=== PATIENT | female | born 1990 | race Caucasian/White ===

== ENCOUNTER 2018-03-05 19:09 | Inpatient (IN) | payer OTHER, SELFPAY ==
[~2018-03-05 19:09] MED LIST: ISOVUE-370 76%-LOCM 1 ML ONE; Ondansetron HCl/PF 4 MG/2 ML Vial ONE; PHENYLEPHRINE-NS 100 MCG/ML 10 ML SYRINGE ONE; Vecuronium 10 MG VIAL ONE; ePHEDrine/0.9% NaCl/PF SYRINGE 50 mg/10 ml ONE
[2018-03-05] MEDS ORDERED: fentaNYL Citrate/PF 2,000 MCG in Sodium Chloride 0.9% 60 ML IV SCH ×2 (19:29→20:37)
[2018-03-05 19:42] LABS: Hemoglobin 12.6 g/dL (12.0-16.0); Mean Corpuscular HGB CONC 34.2 g/dL (32.0-36.0); Mean Corpuscular Hemoglobin 31.6 pg (27.0-31.0); Mean Corpuscular Volume 92.4 fL (78.0-98.0); Mean Platelet Volume 6.6 fL (7.4-10.4); Platelet Count 215 thou/uL (130-400); RBC Distribution Width 11.7 % (11.5-14.5); Red Blood Cell (RBC) Count 3.99 mill/uL (4.20-5.40); White Blood Cell (WBC) Count 31.5 thou/uL (4.8-10.8)
[2018-03-05 19:42] LABS: Bilirubin Negative (Negative); Blood, Urine Large (Negative); Clarity CLEAR (Clear); Glucose, Urine (Dipstick) 250 mg/dL (Negative); Leukocyte Negative (Negative); Nitrite Negative (Negative); Protein, Urine (Dipstick) 300 mg/dL (Neg-Trace); Specific Gravity, Urine 1.013 (1.002-1.036); Urobilinogen 0.2 mg/dL (0.2-1.0); pH, Urine 6.5 (5.0-9.0)
[2018-03-05 19:45] LABS: Bacteria/HPF None Seen HPF (None Seen); Hyaline Casts/LPF 0-3 HYALINE CAST LPF (0-3 Hyaline); Pathc Cast-AUWi Flag 2.18 (0-2.49); RBC/HPF GREATER THAN 50-TNTC HPF (0-3); Renal Epithelial None Seen HPF (0-3); Transitional Epithelial NONE SEEN HPF (0-3)
[2018-03-05 19:46] LABS: Actual Bicarbonate (HCO3a) 21.9 mEq/L (22-28); Base Excess (BEa) -4.5 mEq/L (-2.0 to +3.0); CO2 Tension 45.6 mmHg (35.0-45.0); Hematocrit-ABG 37.3 % (36.0-47.0); O2 Tension (PaO2) 122.8 mmHg (80.0-100.0)
[2018-03-05 19:47] LABS: Analyzer IN Cardio ER; Calcium, Ionized 1.1 mmol/L (1.12-1.30); Hemoglobin (Hb) 11.9 g/dL (12.0-16.0); Puncture Site RRA
[2018-03-05 19:49] LABS: INR-International Normal Ratio 1.5; PTT 35.4 SEC (22.9-36.1); Prothrombin Time 18.4 SEC (12.0-14.7)
[2018-03-05] MEDS ORDERED: Adacel (T-DAP) 0.5 ML VIAL ONE (19:54)
[2018-03-05 19:56] LABS: ALT (SGPT) 132 U/L (8-55); AST (SGOT) 152 U/L (5-34); Albumin 3.5 g/dL (3.5-5.0); Alkaline Phosphatase 47 U/L (40-150); Anion Gap 14 mmol/L (10-20); BUN (Urea Nitrogen) 12 mg/dL (7.0-18.7); Bilirubin, Total 0.4 mg/dL (0.2-1.2); Calc. Creatinine Clearance 0 mL/min (70-130); Calcium 7.9 mg/dL (7.8-10.44); Carbon Dioxide 18 mmol/L (22-29); Chloride 109 mmol/L (98-107); Estimated GFR-MDRD 85; Globulin 2.7 g/dL (2.4-3.5); Glucose 241 mg/dL (70-105); Potassium 3.3 mmol/L (3.5-5.1); Protein, Total 6.2 g/dL (6.0-8.3); Sodium 138 mmol/L (136-145)
[2018-03-05 19:58] LABS: Band 13 % (5-11); Eosinophils 1 % (0-10); Lymphocytes 12 % (21-51); MDiff Complete? YES; Monocytes 9 % (0-10); Neutrophil 65 % (42-75); PLT Morphology Comment Appears Adequate
[2018-03-05] MEDS ORDERED: MANNITOL 20% IVPB SCH (20:00)
[2018-03-05] MEDS ORDERED: CEFAZOLIN/Water 2 GM/20 ML SYRINGE SLOW IVP SCH (20:15)
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
[2018-03-05] MEDS ORDERED: Bacitracin Zinc Ointment 30 gm TUBE ONE (20:18)
[2018-03-05] MEDS ORDERED: Sodium Chloride 0.9% 10 ML ONE (20:18)
[2018-03-05] MEDS ORDERED: Ondansetron HCl/PF 4 MG/2 ML Vial IVP PRN (20:21)
[2018-03-05] MEDS ORDERED: Dextrose 50% Abboject 50 ML SYRINGE SLOW IVP PRN (20:21)
[2018-03-05] MEDS ORDERED: Ondansetron ODT 4 MG TAB PO PRN (20:21)
[2018-03-05] MEDS ORDERED: Dextrose 5% in Water 1,000 ML IV PRN (20:21)
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
[2018-03-05] MEDS ORDERED: Midazolam HCl 2 mg/2 ml Vial ONE (20:25)
[2018-03-05] MEDS ORDERED: Fentanyl 100 MCG/2 ML VIAL ONE (20:25)
[2018-03-05] MEDS ORDERED: Ventilator Sedation Protocol 1 EACH FS SCH (20:30)
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
[2018-03-05] MEDS ORDERED: Lorazepam 2 MG/ML VIAL SLOW IVP PRN (20:37)
[2018-03-05] MEDS ORDERED: Fentanyl BOLUS 250 ML IVPB PRN (20:37)
[2018-03-05] MEDS ORDERED: Propofol BOLUS 1,000 MG/100 ML VIAL IV PRN (20:37)
[2018-03-05] MEDS ORDERED: DISCONTINUE PREVIOUS NARCOTIC PAIN MEDICATIONS AND BENZODIAZEPINES FS SCH (20:37)
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
[2018-03-05] MEDS ORDERED: Thrombin 5000 UNITS/5 ML VIAL ONE (21:02)
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
[2018-03-05] MEDS ORDERED: hydrALAZINE 20 MG/ML VIAL SLOW IVP PRN (21:27)
[2018-03-05] MEDS ORDERED: Labetalol HCl 100 MG/20 ML VIAL SLOW IVP PRN (21:28)
[2018-03-05] MEDS ORDERED: PHENYLEPHRINE-NS 100 MCG/ML 10 ML SYRINGE ONE ×3 (21:50→22:50)
[2018-03-05] MEDS ORDERED: ePHEDrine/0.9% NaCl/PF SYRINGE 50 mg/10 ml ONE (21:54)
[2018-03-05] MEDS ORDERED: CEFAZOLIN 2 GM in Sodium Chloride 0.9% 100 ML IVPB SCH (22:00)
[2018-03-05 22:05] LABS: BHCG - Serum Negative (NEGATIVE); Pregs Control Background? CLEAR/WHITE (CLR/WHITE); Pregs Control Bar Appear? YES (CONTROL BAR)
[2018-03-05] MEDS ORDERED: Albumin 5% 500 ML ONE (22:54)
[2018-03-05 23:27] LABS: Base Excess (BEa) -12.3 mEq/L (-2.0 to +3.0); O2 Tension (PaO2) 81.5 mmHg (80.0-100.0); pH, Arterial 7.17 (7.35-7.45)
[2018-03-05 23:28] LABS: Hemoglobin (Hb) 8.8 g/dL (12.0-16.0); Puncture Site ALINE
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
[2018-03-05] MEDS: Sodium Chloride 0.9% 1,000 ML IV SCH (23:54)
[2018-03-06] MEDS ORDERED: Sodium Chloride 0.9% 1,000 ML IV SCH ×2 (00:15→10:19)
[2018-03-06 00:19] LABS: Actual Bicarbonate (HCO3a) 14.1 mEq/L (22-28); Base Excess (BEa) -11.8 mEq/L (-2.0 to +3.0); CO2 Tension 31.5 mmHg (35.0-45.0); Hematocrit-ABG 26.7 % (36.0-47.0); Hemoglobin (Hb) 9.1 g/dL (12.0-16.0); Puncture Site ALINE; pH, Arterial 7.27 (7.35-7.45)
[2018-03-06 00:20] LABS: ALV-art Gradient 206.475 (0-20)
[2018-03-06 00:55] VITALS: BMI 20.9
[2018-03-06] MEDS ORDERED: Fosphenytoin Sodium 100 MG in Sodium Chloride 0.9% 100 ML IVPB SCH (01:00)
[2018-03-06] MEDS: Acetaminophen 1,000 MG in Premix Bag 1 BAG IVPB SCH ×5 (01:15→23:01)
[2018-03-06 01:48] LABS: Anion Gap 16 mmol/L (10-20); BUN (Urea Nitrogen) 10 mg/dL (7.0-18.7); Calc. Creatinine Clearance 95 mL/min (70-130); Calcium 7.3 mg/dL (7.8-10.44); Carbon Dioxide 14 mmol/L (22-29); Chloride 119 mmol/L (98-107); Estimated GFR-MDRD 83; Glucose 198 mg/dL (70-105); Potassium 4.2 mmol/L (3.5-5.1); Sodium 145 mmol/L (136-145)
--- NOTE | 2018-03-06 04:18 | OP ---
PREOPERATIVE DIAGNOSES: Right subdural hematoma, closed head injury, unresponsive, respiratory failu re on the ventilator, multiple rib fractures, right pulmonary contusion. POSTOPERATIVE DIAGNOSES: Right subdural hematoma, closed head injury, unresponsive, respiratory fail ure on the ventilator, multiple rib fractures, right pulmonary contusion. PROCEDURES: Left subclavian vein triple lumen catheter. PROCEDURE: At the patient bedside in sterile technique, left periclavicular area was prepared with C hloraPrep, draped in routine fashion. Trocar catheter cannulated the subclavian vein and Seldinger t echnique used to place a triple lumen catheter, removing the J-wire, securing the catheter with 2 int errupted sutures of 3-0 silk. Sterile dressing applied. Each port aspirated blood and flushed with saline solution. Chest x-ray revealed good line placement.
[2018-03-06] MEDS: Sodium Chloride 0.9% 1,000 ML IV SCH (05:00)
[2018-03-06] MEDS: CEFAZOLIN/Water 2 GM/20 ML SYRINGE SLOW IVP SCH ×3 (05:01→22:38)
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
[2018-03-06 05:23] LABS: Anion Gap 19 mmol/L (10-20); BUN (Urea Nitrogen) 8 mg/dL (7.0-18.7); Calc. Creatinine Clearance 91 mL/min (70-130); Calcium 9.5 mg/dL (7.8-10.44); Carbon Dioxide 10 mmol/L (22-29); Chloride 121 mmol/L (98-107); Estimated GFR-MDRD 80; Glucose 190 mg/dL (70-105); Magnesium 1.9 mg/dL (1.6-2.6); Phosphorus 4.1 mg/dL (2.3-4.7); Potassium 4.4 mmol/L (3.5-5.1); Sodium 146 mmol/L (136-145)
[2018-03-06 05:40] LABS: Band 44 % (5-11); Hemoglobin 9.9 g/dL (12.0-16.0); Lymphocytes 3 % (21-51); MDiff Complete? YES; Mean Corpuscular HGB CONC 34.2 g/dL (32.0-36.0); Mean Corpuscular Hemoglobin 32.2 pg (27.0-31.0); Mean Corpuscular Volume 94.2 fL (78.0-98.0); Mean Platelet Volume 7.1 fL (7.4-10.4); Monocytes 4 % (0-10); Neutrophil 49 % (42-75); Platelet Count 208 thou/uL (130-400); RBC Distribution Width 11.8 % (11.5-14.5); Red Blood Cell (RBC) Count 3.08 mill/uL (4.20-5.40); White Blood Cell (WBC) Count 20.9 thou/uL (4.8-10.8)
[2018-03-06] MEDS ORDERED: Mannitol 12.5 GM/50 ML SLOW IVP SCH (06:00)
--- NOTE | 2018-03-06 06:29 | OP ---
DATE OF PROCEDURE: 03/05/2018 SURGEON: Rodney Mckenzie M.D. IGNITER CAPPER: Adal Sheikh PA-C INDICATION: Prevent neurologic decline. DIAGNOSIS: Large right cerebral convexity subdural hematoma. PROCEDURE: Right frontoparietal temporal craniectomy with evacuation of subdural hematoma. ANESTHESIA: General. TECHNIQUE: The patient was brought into the operating room and placed under general anesthesia. She was placed on the table in a supine position. A large curvilinear incision was planned on the right side of the head after shaving her hair. A skin defect was present, was traumatic in nature and had been repaired in the ER. After planning our incision, after prepping and draping and after an appro priate operative pause, the incision was created. The skin was reflected anteriorly. There was hair present in the subgaleal space, some of which was entrapped in the bone fracture. Several germán hole s were placed and a router drill bit was used to connect the germán holes and a large bone flap was rem meka. The underlying dura was identified and was found to be taut with a blue hue. A large cruciate incisions were then made within the dura over a very large subdural hematoma was identified. Subdur al hematoma was irrigated away to decompress the brain. The brain did start to return back to normal position with a slight degree of edema. There was a contusion in the parietal region on the right s serenity consistent with the location of the fracture with . There was also very robust bleeding kayleigh ng the vertex near the sagittal sinus, which was stopped by packing and Gelfoam with thrombin. After obtaining hemostasis and irrigating the surface of the brain, the dural leaflets were approximated l oosely. A sterile Silastic piece of sheeting was placed over the dural defect. A subgaleal drain wa s placed and brought out through a separate puncture site from within the skin. The bone was placed in a sterile fashion in storage. The scalp was then closed in anatomic layers. A loose pressure maribel ssing was applied. The procedure came to an end without known complication.
[2018-03-06 06:51] LABS: Actual Bicarbonate (HCO3a) 10.1 mEq/L (22-28); CO2 Tension 19.4 mmHg (35.0-45.0); O2 Tension (PaO2) 147.1 mmHg (80.0-100.0); pH, Arterial 7.34 (7.35-7.45)
[2018-03-06 06:52] LABS: Calcium, Ionized 1.2 mmol/L (1.12-1.30); Hemoglobin (Hb) 8.7 g/dL (12.0-16.0)
[2018-03-06 06:53] LABS: Puncture Site ALINE
[2018-03-06] MEDS ORDERED: Lidocaine 1% (PF) 30 ML VIAL ONE (07:42)
[2018-03-06] MEDS ORDERED: Fentanyl 100 MCG/2 ML VIAL ONE (08:17)
[2018-03-06] MEDS ORDERED: Albumin 5% 500 ML ONE (08:21)
[2018-03-06] MEDS ORDERED: Vecuronium 10 MG VIAL ONE (08:35)
[2018-03-06] MEDS ORDERED: Sterile Water 10 ML ONE (08:35)
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
[2018-03-06] MEDS ORDERED: Fosphenytoin Sodium 100 mg/2 ml Vial IVPB SCH (09:00)
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
[2018-03-06] MEDS: Sodium Bicarb 50 MEQ/50 ML Abboject 8.4% SYRINGE IVP SCH ×2 (09:10→09:28)
[2018-03-06] MEDS ORDERED: Sodium Bicarb 50 MEQ/50 ML VIAL IVP SCH (09:15)
[2018-03-06] MEDS: Fosphenytoin Sodium 100 MG in Sodium Chloride 0.9% 100 ML IVPB SCH ×3 (09:33→22:38)
[2018-03-06 09:47] LABS: Actual Bicarbonate (HCO3a) 17.4 mEq/L (22-28); Base Excess (BEa) -7.1 mEq/L (-2.0 to +3.0); CO2 Tension 30.3 mmHg (35.0-45.0); Hemoglobin (Hb) 6.7 g/dL (12.0-16.0); O2 Tension (PaO2) 149.7 mmHg (80.0-100.0); pH, Arterial 7.38 (7.35-7.45)
[2018-03-06 09:48] LABS: Calcium, Ionized 1.1 mmol/L (1.12-1.30); Puncture Site A-LINE
[2018-03-06 09:49] LABS: ALV-art Gradient 133.275 (0-20)
--- NOTE | 2018-03-06 10:30 | PRG ---
DATE OF SERVICE: 03/06/2018 SUBJECTIVE: Ms. Beckwith is now day #1 postop from subdural evacuation last night. Unfortunately, h er exam is extremely very poor. She is not on any sedation, but has fixed dilated pupils, right grea ter than left. She does not have a corneal reflex. She is overbreathing the vent. From time to mackenzie e while I am examining her, and response I get is extensor posturing with no purposeful movement and no command following. Unfortunately, this likely precludes a significantly poor prognosis. A repeat scan is pending.
[2018-03-06 10:57] LABS: Anion Gap 18 mmol/L (10-20); BUN (Urea Nitrogen) 7 mg/dL (7.0-18.7); Calc. Creatinine Clearance 97 mL/min (70-130); Calcium 8.4 mg/dL (7.8-10.44); Carbon Dioxide 15 mmol/L (22-29); Chloride 121 mmol/L (98-107); Estimated GFR-MDRD 85; Glucose 164 mg/dL (70-105); Potassium 4.1 mmol/L (3.5-5.1); Sodium 150 mmol/L (136-145)
[2018-03-06 10:58] LABS: INR-International Normal Ratio 1.8; Prothrombin Time 21.8 SEC (12.0-14.7)
[2018-03-06] MEDS ORDERED: Dextrose 5 %-0.45 % NaCl 1,000 ML IV SCH (11:15)
[2018-03-06] MEDS ORDERED: Magnesium Sulfate 2 GM, Admixture Fee 1 EACH in Sodium Chloride 0.9% 100 ML IVPB SCH (11:45)
[2018-03-06] MEDS: HumaLOG 300 UNITS/3 ML VIAL SC PRN ×2 (12:13→17:58)
[2018-03-06 12:22] LABS: Actual Bicarbonate (HCO3a) 15.9 mEq/L (22-28); Base Excess (BEa) -9.1 mEq/L (-2.0 to +3.0); CO2 Tension 31.4 mmHg (35.0-45.0); Hemoglobin (Hb) 9.3 g/dL (12.0-16.0); O2 Tension (PaO2) 114.7 mmHg (80.0-100.0); pH, Arterial 7.32 (7.35-7.45)
[2018-03-06 12:23] LABS: Calcium, Ionized 1.1 mmol/L (1.12-1.30); Puncture Site A-LINE
[2018-03-06] MEDS ORDERED: Lidocaine 1% w/Epinephrine 1:100K 20 ML VIAL ONE (12:38)
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
[2018-03-06] MEDS ORDERED: Sodium Bicarb 50 MEQ/50 ML Abboject 8.4% SYRINGE IVP SCH (13:15)
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
[2018-03-06] MEDS: Norepinephrine 8 MG/0.9% NS 250 ML IVPB SCH ×2 (13:41→22:41)
[2018-03-06] MEDS: Lactated Ringer's 1,000 ML IV SCH ×2 (13:42→22:41)
[2018-03-06 15:17] LABS: INR-International Normal Ratio 1.6; PTT 37.5 SEC (22.9-36.1); Prothrombin Time 19.6 SEC (12.0-14.7)
[2018-03-06 15:55] LABS: Actual Bicarbonate (HCO3a) 19.2 mEq/L (22-28); Base Excess (BEa) -4.9 mEq/L (-2.0 to +3.0); CO2 Tension 32.3 mmHg (35.0-45.0); O2 Tension (PaO2) 88.9 mmHg (80.0-100.0); pH, Arterial 7.39 (7.35-7.45)
[2018-03-06 15:56] LABS: Calcium, Ionized 1.2 mmol/L (1.12-1.30); Hemoglobin (Hb) 9.5 g/dL (12.0-16.0); Puncture Site A-LINE
[2018-03-06 15:58] LABS: ALV-art Gradient 191.575 (0-20)
[2018-03-06] MEDS ORDERED: Potassium Chloride 40 MEQ in Premix Bag 1 BAG IVPB SCH (16:15)
[2018-03-06] MEDS: Calcium Chloride 1 GM/10 ML Abboject SYRINGE IVP SCH (16:40)
[2018-03-06] MEDS: Propofol 1,000 MG/100 ML VIAL IV PRN (22:40)
[2018-03-07 05:01] LABS: INR-International Normal Ratio 1.7; PTT 38.3 SEC (22.9-36.1); Prothrombin Time 20.5 SEC (12.0-14.7)
[2018-03-07 05:10] LABS: #Lymphocytes 2.6 thou/uL (1.20-3.40); #Monocytes 1.3 thou/uL (0.11-0.59); #Neutrophils 13.6 thou/uL (1.40-6.50); %Basophils 0.2 % (0.0-1.0); %Eosinophils 0.1 % (0.0-10.0); %Lymphocytes 14.6 % (21.0-51.0); %Monocytes 7.6 % (0.0-10.0); %Neutrophils 77.6 % (42.0-75.0); Hemoglobin 9.5 g/dL (12.0-16.0); Mean Corpuscular HGB CONC 32.9 g/dL (32.0-36.0); Mean Corpuscular Hemoglobin 29.9 pg (27.0-31.0); Mean Corpuscular Volume 91.1 fL (78.0-98.0); Mean Platelet Volume 7.6 fL (7.4-10.4); Platelet Count 125 thou/uL (130-400); RBC Distribution Width 13.6 % (11.5-14.5); Red Blood Cell (RBC) Count 3.17 mill/uL (4.20-5.40); White Blood Cell (WBC) Count 17.5 thou/uL (4.8-10.8)
[2018-03-07] MEDS: CEFAZOLIN/Water 2 GM/20 ML SYRINGE SLOW IVP SCH ×3 (05:16→21:19)
[2018-03-07 05:22] LABS: Magnesium 2.2 mg/dL (1.6-2.6)
[2018-03-07 06:55] LABS: Actual Bicarbonate (HCO3a) 22.1 mEq/L (22-28); Base Excess (BEa) -2.1 mEq/L (-2.0 to +3.0); O2 Tension (PaO2) 57.1 mmHg (80.0-100.0); pH, Arterial 7.42 (7.35-7.45)
[2018-03-07 06:56] LABS: Calcium, Ionized 1.3 mmol/L (1.12-1.30); Hemoglobin (Hb) 9.9 g/dL (12.0-16.0); Puncture Site ALINE
[2018-03-07 07:54] LABS: Anion Gap 13 mmol/L (10-20); BUN (Urea Nitrogen) 6 mg/dL (7.0-18.7); Calc. Creatinine Clearance 111 mL/min (70-130); Calcium 9.8 mg/dL (7.8-10.44); Carbon Dioxide 21 mmol/L (22-29); Chloride 130 mmol/L (98-107); Estimated GFR-MDRD Greater than 90; Glucose 121 mg/dL (70-105); Potassium 3.6 mmol/L (3.5-5.1); Sodium 160 mmol/L (136-145)
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
[2018-03-07] MEDS ORDERED: Dextrose 5 %-0.45 % NaCl 1,000 ML IV SCH (08:30)
[2018-03-07] MEDS: Propofol 1,000 MG/100 ML VIAL IV PRN ×3 (08:51→22:36)
[2018-03-07] MEDS: Fosphenytoin Sodium 100 MG in Sodium Chloride 0.9% 100 ML IVPB SCH ×3 (08:51→20:07)
[2018-03-07] MEDS: Bisacodyl 10 MG SUPP PR SCH (09:00)
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
[2018-03-07 09:51] LABS: Sodium 162 mmol/L (136-145)
[2018-03-07 11:46] LABS: Actual Bicarbonate (HCO3a) 21.5 mEq/L (22-28); Base Excess (BEa) -2.4 mEq/L (-2.0 to +3.0); CO2 Tension 33.9 mmHg (35.0-45.0); O2 Tension (PaO2) 61.9 mmHg (80.0-100.0); pH, Arterial 7.42 (7.35-7.45)
[2018-03-07 11:47] LABS: ALV-art Gradient 323.525 (0-20); Calcium, Ionized 1.2 mmol/L (1.12-1.30); Puncture Site ALINE
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
[2018-03-07] MEDS ORDERED: Vecuronium 10 MG VIAL ONE ×2 (12:32→13:12)
[2018-03-07] MEDS ORDERED: ISOVUE-370 76%-LOCM 1 ML ONE (12:37)
[2018-03-07] MEDS ORDERED: Sterile Water 0 ML ONE (13:12)
[2018-03-07] MEDS ORDERED: Lidocaine 1% (PF) 30 ML VIAL ONE (13:12)
[2018-03-07 13:24] LABS: Sodium 163 mmol/L (136-145)
--- NOTE | 2018-03-07 13:54 | RAD ---
CHEST ONE VIEW: History: Hypoxia. Pneumothorax. Comparison: 03-06-18, 03-07-18 FINDINGS: Redemonstration of endotracheal and nasogastric tubes. Redemonstration of left sided central venous c atheter and left sided chest tube. No obvious left sided pneumothorax. There is an enlarging right sided pneumothorax with pleural effusion. IMPRESSION: 1. Enlarging right sided hydropneumothorax. 2. Additional lines and tubes as described above. 3. No evidence of a left sided pneumothorax. Results of study discussed with Dr. Leal 03-07-18 at 1:07 p.m. POS: [facility]
[2018-03-07 14:53] LABS: Actual Bicarbonate (HCO3a) 22.6 mEq/L (22-28); Base Excess (BEa) -3.2 mEq/L (-2.0 to +3.0); Hemoglobin (Hb) 10.6 g/dL (12.0-16.0); O2 Tension (PaO2) 72.8 mmHg (80.0-100.0); pH, Arterial 7.38 (7.35-7.45)
[2018-03-07 14:54] LABS: Calcium, Ionized 1.2 mmol/L (1.12-1.30); Puncture Site ALINE
[2018-03-07] MEDS: Dextrose 5% in Water 1,000 ML IV SCH (14:58)
[2018-03-07 17:34] LABS: Sodium 162 mmol/L (136-145)
[2018-03-07] MEDS: Calcium Chloride 1 GM/10 ML Abboject SYRINGE IVP SCH (17:42)
[2018-03-07] MEDS: Norepinephrine 8 MG/0.9% NS 250 ML IVPB SCH (18:04)
[2018-03-07 19:12] LABS: Osmolality, Serum 335 mOsm/kg (280-295)
[2018-03-07] MEDS: Famotidine/PF 20 mg/2ml Vial SLOW IVP SCH (19:51)
[2018-03-07] MEDS: Acetaminophen 325 MG TAB PO PRN (20:06)
[2018-03-07 20:37] LABS: Osmolality, Serum 332 mOsm/kg (280-295)
[2018-03-07 20:44] LABS: Sodium 162 mmol/L (136-145)
[2018-03-07 22:30] LABS: Base Excess (BEa) -3.4 mEq/L (-2.0 to +3.0); CO2 Tension 35.6 mmHg (35.0-45.0); O2 Tension (PaO2) 66.2 mmHg (80.0-100.0); pH, Arterial 7.39 (7.35-7.45)
[2018-03-07 22:31] LABS: Hemoglobin (Hb) 10.3 g/dL (12.0-16.0)
[2018-03-07 22:32] LABS: Calcium, Ionized 1.3 mmol/L (1.12-1.30); Puncture Site LINE
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
[2018-03-08] MEDS: HumaLOG 300 UNITS/3 ML VIAL SC PRN ×2 (00:28→04:41)
[2018-03-08] MEDS: Dextrose 5% in Water 1,000 ML IV SCH ×2 (00:31→04:58)
[2018-03-08 00:49] LABS: Sodium 162 mmol/L (136-145)
[2018-03-08 00:50] LABS: Osmolality, Serum 331 mOsm/kg (280-295)
[2018-03-08 03:05] LABS: Actual Bicarbonate (HCO3a) 20.9 mEq/L (22-28); Base Excess (BEa) -3.7 mEq/L (-2.0 to +3.0); CO2 Tension 35.7 mmHg (35.0-45.0); Hemoglobin (Hb) 9.8 g/dL (12.0-16.0); O2 Tension (PaO2) 69.5 mmHg (80.0-100.0); pH, Arterial 7.39 (7.35-7.45)
[2018-03-08 03:06] LABS: Calcium, Ionized 1.2 mmol/L (1.12-1.30); Puncture Site ALINE
[2018-03-08 03:08] LABS: ALV-art Gradient 313.675 (0-20)
[2018-03-08] MEDS: Acetaminophen 325 MG TAB PO PRN (04:38)
[2018-03-08] MEDS: Propofol 1,000 MG/100 ML VIAL IV PRN (05:11)
[2018-03-08] MEDS: CEFAZOLIN/Water 2 GM/20 ML SYRINGE SLOW IVP SCH ×3 (05:12→21:31)
[2018-03-08 05:22] LABS: Anion Gap 12 mmol/L (10-20); BUN (Urea Nitrogen) 7 mg/dL (7.0-18.7); Calc. Creatinine Clearance 114 mL/min (70-130); Calcium 9.2 mg/dL (7.8-10.44); Carbon Dioxide 23 mmol/L (22-29); Chloride 123 mmol/L (98-107); Estimated GFR-MDRD Greater than 90; Glucose 151 mg/dL (70-105); Magnesium 1.7 mg/dL (1.6-2.6); Phosphorus 1.9 mg/dL (2.3-4.7); Potassium 2.7 mmol/L (3.5-5.1); Sodium 155 mmol/L (136-145)
[2018-03-08 05:51] LABS: Band 58 % (5-11); Hemoglobin 9.3 g/dL (12.0-16.0); Lymphocytes 18 % (21-51); MDiff Complete? YES; Mean Corpuscular HGB CONC 33.2 g/dL (32.0-36.0); Mean Corpuscular Hemoglobin 30.4 pg (27.0-31.0); Mean Corpuscular Volume 91.5 fL (78.0-98.0); Mean Platelet Volume 7.7 fL (7.4-10.4); Metamyelocyte 7 % (0-0); Monocytes 2 % (0-10); Myelocyte 2 % (0-0); Neutrophil 13 % (42-75); Platelet Count 137 thou/uL (130-400); RBC Distribution Width 14.2 % (11.5-14.5); Red Blood Cell (RBC) Count 3.05 mill/uL (4.20-5.40); White Blood Cell (WBC) Count 12.4 thou/uL (4.8-10.8)
[2018-03-08] MEDS ORDERED: Potassium Phosphate 30 MMOL, Magnesium Sulfate 3 GM in Sodium Chloride 0.9% 250 ML 250 ML IVPB SCH (06:00)
[2018-03-08 07:06] LABS: Base Excess (BEa) -1.5 mEq/L (-2.0 to +3.0); CO2 Tension 37.4 mmHg (35.0-45.0); Hemoglobin (Hb) 9.6 g/dL (12.0-16.0); O2 Tension (PaO2) 87.3 mmHg (80.0-100.0); pH, Arterial 7.41 (7.35-7.45)
[2018-03-08 07:07] LABS: Calcium, Ionized 1.2 mmol/L (1.12-1.30); Puncture Site ALINE
[2018-03-08] MEDS: Bisacodyl 10 MG SUPP PR SCH (08:45)
[2018-03-08] MEDS: Fosphenytoin Sodium 100 MG in Sodium Chloride 0.9% 100 ML IVPB SCH ×3 (08:45→21:30)
--- NOTE | 2018-03-08 09:05 | RAD ---
FRONTAL RADIOGRAPH CHEST: Date: 03/08/18 Time: 0509 hours COMPARISON: 03/07/18 at 1250 hours. HISTORY: Pneumothorax, intubated patient. FINDINGS: Small bilateral apical pneumothoraces are noted, right larger than left. Endotracheal tube, nasogastr ic tube, and left-sided vascular catheter in proper position. Chest tubes overlie bilateral lung base s. Both chest tubes appear kinked. There is air space disease and pleural fluid within the lung bases . IMPRESSION: Lines and tubes as above. Small apical pneumothoraces. Bibasilar nonspecific alveolar opacity and ple ural fluid. POS: [facility]
[2018-03-08] MEDS ORDERED: Famotidine 20 MG TAB PER TUBE SCH (10:00)
[2018-03-08] MEDS: Famotidine/PF 20 mg/2ml Vial SLOW IVP SCH (10:10)
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
[2018-03-08 14:35] LABS: Anion Gap 11 mmol/L (10-20); BUN (Urea Nitrogen) 9 mg/dL (7.0-18.7); Calc. Creatinine Clearance 127 mL/min (70-130); Calcium 8.9 mg/dL (7.8-10.44); Carbon Dioxide 24 mmol/L (22-29); Chloride 122 mmol/L (98-107); Estimated GFR-MDRD Greater than 90; Glucose 130 mg/dL (70-105); Magnesium 2.4 mg/dL (1.6-2.6); Potassium 3.2 mmol/L (3.5-5.1); Sodium 154 mmol/L (136-145)
[2018-03-08] MEDS ORDERED: Potassium Chloride 20 MEQ in Premix Bag 1 BAG IVPB SCH (17:30)
[2018-03-08] MEDS ORDERED: Potassium Chloride 40 MEQ in Premix Bag 1 BAG IVPB SCH (17:45)
--- NOTE | 2018-03-08 19:24 | PRG ---
DATE OF SERVICE: 03/08/2018 TIME OF SERVICE: 06:30 Ms. Beckwith is still admitted to the ICU on full ventilator support. She is yet had any improvement in her neurologic status regardless of urgent cranial decompression. Her most recent CT scan shows further progression of her bilateral infarct. It does not appear that she will be making any recover y and her prognosis is fair. Neurosurgery will continue to follow. Her drain output is less than 37 0 mL of volume.
[2018-03-08] MEDS: Famotidine 20 MG TAB PER TUBE SCH (21:31)
[2018-03-09] MEDS: Dextrose 5% in Water 1,000 ML IV SCH ×2 (02:36→22:02)
[2018-03-09 05:13] LABS: ALT (SGPT) 19 U/L (8-55); AST (SGOT) 48 U/L (5-34); Albumin 3.2 g/dL (3.5-5.0); Alkaline Phosphatase 108 U/L (40-150); Anion Gap 10 mmol/L (10-20); BUN (Urea Nitrogen) 13 mg/dL (7.0-18.7); Bilirubin, Total 0.7 mg/dL (0.2-1.2); Calc. Creatinine Clearance 129 mL/min (70-130); Calcium 9.3 mg/dL (7.8-10.44); Carbon Dioxide 27 mmol/L (22-29); Chloride 119 mmol/L (98-107); Estimated GFR-MDRD Greater than 90; Globulin 2.5 g/dL (2.4-3.5); Glucose 131 mg/dL (70-105); Potassium 3.3 mmol/L (3.5-5.1); Protein, Total 5.7 g/dL (6.0-8.3); Sodium 153 mmol/L (136-145)
[2018-03-09] MEDS: CEFAZOLIN/Water 2 GM/20 ML SYRINGE SLOW IVP SCH ×3 (06:09→22:03)
[2018-03-09 07:57] LABS: Magnesium 1.9 mg/dL (1.6-2.6); Phosphorus 2.7 mg/dL (2.3-4.7)
[2018-03-09] MEDS ORDERED: POTASSIUM PHOSPHATE IVPB SCH (08:00)
[2018-03-09] MEDS ORDERED: MAGNESIUM SULFATE IVPB SCH (08:00)
[2018-03-09] MEDS ORDERED: [UNRECOGNIZED DRUG - OTHER] IVPB SCH (08:00)
[2018-03-09 08:06] LABS: Actual Bicarbonate (HCO3a) 25.2 mEq/L (22-28); Base Excess (BEa) 1.7 mEq/L (-2.0 to +3.0); CO2 Tension 34.8 mmHg (35.0-45.0); O2 Tension (PaO2) 70.9 mmHg (80.0-100.0); pH, Arterial 7.48 (7.35-7.45)
[2018-03-09 08:07] LABS: Hemoglobin (Hb) 9.6 g/dL (12.0-16.0)
[2018-03-09 08:11] LABS: Calcium, Ionized 1.2 mmol/L (1.12-1.30)
[2018-03-09 08:12] LABS: Puncture Site ALINE
[2018-03-09 08:48] LABS: Sodium 152 mmol/L (136-145)
[2018-03-09] MEDS: Fosphenytoin Sodium 100 MG in Sodium Chloride 0.9% 100 ML IVPB SCH ×3 (09:25→22:03)
--- NOTE | 2018-03-09 10:26 | PDOC.OP ---
Operative Note - Operative Note Operative Note: INDICATION: Replacement of arterial line due to non-functioning. PROCEDURE MANAGER ETL: Dr. Carlos Medina ATTENDING PHYSICIAN: Dr. Leroy Leal in Attendance CONSENT: Consent was not obtained prior to the procedure due to mental status. PROCEDURE SUMMARY: A time out was performed. My hands were washed immediately prior to the procedure. I wore sterile gloves throughout the procedure. No local anesthesia was used. The previous arterial line was in the right wrist. The non- functioning arterial line was prepped using Betadine scrubs. A guide wire was introduced into the catheter and advanced easily into the artery. The previous catheter was removed and replaced with a new catheter that was advanced over the guide wire and easily into the artery. The guide wire was then withdrawn. Good arterial waveform was visualized on the monitors. The catheter was sutured in place using 3-0 silk. A sterile opsite was placed over the catheter at the insertion site. The patient tolerated the procedure without any hemodynamic compromise. At the time of procedure completion, the catheter was connected to the phototypesetting equipment monitor and calibrated. Appropriate waveform and blood pressure tracing was observed. Estimated blood loss is 1 ml.
[2018-03-09] MEDS: Famotidine 20 MG TAB PER TUBE SCH ×2 (11:18→22:04)
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
[2018-03-09] MEDS: Bisacodyl 10 MG SUPP PR SCH ×2 (11:26→11:28)
[2018-03-09 16:39] LABS: Sodium 151 mmol/L (136-145)
[2018-03-09] MEDS: Acetaminophen 325 MG TAB PO PRN (18:11)
[2018-03-10] MEDS ORDERED: Acetaminophen 650 MG Suppository PR PRN (03:29)
[2018-03-10] MEDS: HumaLOG 300 UNITS/3 ML VIAL SC PRN (04:04)
[2018-03-10] MEDS: CEFAZOLIN/Water 2 GM/20 ML SYRINGE SLOW IVP SCH (05:01)
[2018-03-10 05:44] LABS: ALT (SGPT) 12 U/L (8-55); AST (SGOT) 43 U/L (5-34); Albumin 3.2 g/dL (3.5-5.0); Alkaline Phosphatase 110 U/L (40-150); Anion Gap 12 mmol/L (10-20); BUN (Urea Nitrogen) 17 mg/dL (7.0-18.7); Bilirubin, Total 0.7 mg/dL (0.2-1.2); Calc. Creatinine Clearance 129 mL/min (70-130); Calcium 9.4 mg/dL (7.8-10.44); Carbon Dioxide 28 mmol/L (22-29); Chloride 116 mmol/L (98-107); Estimated GFR-MDRD Greater than 90; Globulin 3.2 g/dL (2.4-3.5); Glucose 161 mg/dL (70-105); Potassium 3.5 mmol/L (3.5-5.1); Protein, Total 6.4 g/dL (6.0-8.3); Sodium 152 mmol/L (136-145)
[2018-03-10] MEDS ORDERED: Metoprolol Tartrate 5 MG/5 ML VIAL IVP SCH (07:45)
[2018-03-10] MEDS ORDERED: cloNIDine 0.3 MG TAB PO SCH (07:45)
[2018-03-10] MEDS ORDERED: cefTRIAXone\\ROCEPHIN 2 GM in Sodium Chloride 0.9% 100 ML IVPB SCH ×2 (08:15→09:00)
[2018-03-10] MEDS ORDERED: Ibuprofen 100 MG/5 ML UDCUP PER TUBE SCH (08:30)
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
[2018-03-10] MEDS: Fosphenytoin Sodium 100 MG in Sodium Chloride 0.9% 100 ML IVPB SCH ×4 (08:53→21:33)
[2018-03-10 08:54] LABS: Phosphorus 4.1 mg/dL (2.3-4.7)
[2018-03-10] MEDS: Famotidine 20 MG TAB PER TUBE SCH ×2 (08:54→21:32)
[2018-03-10] MEDS: Bisacodyl 10 MG SUPP PR SCH (08:55)
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
[2018-03-10] MEDS ORDERED: Potassium Chloride 10 MEQ in Premix Bag 1 BAG IVPB SCH (10:00)
[2018-03-10] MEDS: Esmolol 2,500 MG/250 ML 250 ML IVPB SCH ×2 (11:24→17:40)
[2018-03-10] MEDS ORDERED: Potassium Chloride 20 MEQ in Premix Bag 1 BAG IVPB SCH (12:00)
[2018-03-10 12:19] LABS: INR-International Normal Ratio 1.3; PTT 39.9 SEC (22.9-36.1); Prothrombin Time 16.8 SEC (12.0-14.7)
[2018-03-10 12:39] LABS: Actual Bicarbonate (HCO3a) 23.7 mEq/L (22-28); CO2 Tension 35.2 mmHg (35.0-45.0); Calcium, Ionized 1.1 mmol/L (1.12-1.30); O2 Tension (PaO2) 77.7 mmHg (80.0-100.0); Puncture Site ALINE; pH, Arterial 7.45 (7.35-7.45)
[2018-03-10 12:46] LABS: Hemoglobin A1c 4.8 % (4.0-6.0)
[2018-03-10 12:47] LABS: Band 44 % (5-11); Bilirubin, Direct 0.3 mg/dL (0.1-0.3); Hemoglobin 10.5 g/dL (12.0-16.0); Lymphocytes 9 % (21-51); MDiff Complete? YES; Mean Corpuscular HGB CONC 33.4 g/dL (32.0-36.0); Mean Corpuscular Hemoglobin 30.9 pg (27.0-31.0); Mean Corpuscular Volume 92.5 fL (78.0-98.0); Mean Platelet Volume 6.4 fL (7.4-10.4); Metamyelocyte 1 % (0-0); Monocytes 3 % (0-10); Myelocyte 1 % (0-0); Neutrophil 42 % (42-75); PLT Morphology Comment Appears Adequate; Platelet Count 191 thou/uL (130-400); RBC Distribution Width 14.1 % (11.5-14.5); Red Blood Cell (RBC) Count 3.39 mill/uL (4.20-5.40); Toxic Granulation SLIGHT; Vacuoles SLIGHT; White Blood Cell (WBC) Count 18.7 thou/uL (4.8-10.8)
[2018-03-10 12:48] LABS: ALT (SGPT) 11 U/L (8-55); AST (SGOT) 44 U/L (5-34); Albumin 3.2 g/dL (3.5-5.0); Alkaline Phosphatase 95 U/L (40-150); Anion Gap 14 mmol/L (10-20); BUN (Urea Nitrogen) 15 mg/dL (7.0-18.7); Bilirubin, Total 0.6 mg/dL (0.2-1.2); Calc. Creatinine Clearance 134 mL/min (70-130); Calcium 9.3 mg/dL (7.8-10.44); Carbon Dioxide 26 mmol/L (22-29); Chloride 110 mmol/L (98-107); Estimated GFR-MDRD Greater than 90; Globulin 3.4 g/dL (2.4-3.5); Glucose 113 mg/dL (70-105); Phosphorus 3.8 mg/dL (2.3-4.7); Potassium 4.2 mmol/L (3.5-5.1); Protein, Total 6.6 g/dL (6.0-8.3); Sodium 146 mmol/L (136-145)
[2018-03-10 13:01] LABS: Bilirubin Negative (Negative); Blood, Urine Moderate (Negative); Clarity CLEAR (Clear); Glucose, Urine (Dipstick) 250 mg/dL (Negative); Leukocyte Negative (Negative); Nitrite Negative (Negative); Protein, Urine (Dipstick) 30 mg/dL (Neg-Trace); Specific Gravity, Urine 1.015 (1.002-1.036); Urobilinogen 0.2 mg/dL (0.2-1.0)
[2018-03-10 13:03] LABS: Bacteria/HPF None Seen HPF (None Seen); Hyaline Casts/LPF 7-10 HYALINE CAST LPF (0-3 Hyaline); Pathc Cast-AUWi Flag 2.32 (0-2.49); RBC/HPF 0-3 HPF (0-3); Squamous Epithelial 0-3 HPF (0-3); WBC/HPF 0-3 HPF (0-3)
--- NOTE | 2018-03-10 13:21 | RAD ---
SINGLE VIEW CHEST: HISTORY: Intubated. Donor patient. COMPARISON: 03/10/2018 at 7:43 a.m. FINDINGS: A single view of the chest shows a normal sized cardiomediastinal silhouette. Lines and tubes are un changed in position. There are bilateral lower lobe air space opacities, which may represent infiltr ates or pulmonary contusions. IMPRESSION: Worsening bilateral lower lobe infiltrates. POS: [facility]
[2018-03-10 13:45] LABS: Actual Bicarbonate (HCO3a) 25.1 mEq/L (22-28); Base Excess (BEa) 1.5 mEq/L (-2.0 to +3.0); CO2 Tension 36.5 mmHg (35.0-45.0); O2 Tension (PaO2) 339.2 mmHg (80.0-100.0); pH, Arterial 7.46 (7.35-7.45)
[2018-03-10 13:46] LABS: Hemoglobin (Hb) 14.3 g/dL (12.0-16.0)
[2018-03-10] MEDS: Acetaminophen 325 MG TAB PO PRN (13:46)
[2018-03-10 13:47] LABS: Calcium, Ionized 1.2 mmol/L (1.12-1.30); Puncture Site A-LINE
[2018-03-10 13:48] LABS: ALV-art Gradient 328.175 (0-20)
[2018-03-10] MEDS: Dextrose 5% in Water 1,000 ML IV SCH (18:02)
[2018-03-10 18:18] LABS: INR-International Normal Ratio 1.3; Prothrombin Time 16.7 SEC (12.0-14.7)
[2018-03-10 18:19] LABS: Hemoglobin 10.3 g/dL (12.0-16.0); Mean Corpuscular Hemoglobin 30.8 pg (27.0-31.0); Mean Corpuscular Volume 93.2 fL (78.0-98.0); Mean Platelet Volume 6.5 fL (7.4-10.4); PTT 39.2 SEC (22.9-36.1); Platelet Count 204 thou/uL (130-400); Red Blood Cell (RBC) Count 3.34 mill/uL (4.20-5.40); White Blood Cell (WBC) Count 17.5 thou/uL (4.8-10.8)
[2018-03-10 18:37] LABS: Band 17 % (5-11); Dohle Bodies SLIGHT; Lymphocytes 22 % (21-51); MDiff Complete? YES; Monocytes 3 % (0-10); Neutrophil 56 % (42-75); Nucleated RBC 1 % (0); PLT Morphology Comment Appears Adequate; Polychromasia SLIGHT = 2-3 cells (100X) (0-2/hpf); Reactive Lymphocytes 1 % (0-10); Vacuoles SLIGHT
[2018-03-10 18:45] LABS: ALT (SGPT) 11 U/L (8-55); AST (SGOT) 43 U/L (5-34); Albumin 3.1 g/dL (3.5-5.0); Alkaline Phosphatase 91 U/L (40-150); Anion Gap 13 mmol/L (10-20); BUN (Urea Nitrogen) 16 mg/dL (7.0-18.7); Bilirubin, Total 0.7 mg/dL (0.2-1.2); Calc. Creatinine Clearance 125 mL/min (70-130); Calcium 9.2 mg/dL (7.8-10.44); Carbon Dioxide 25 mmol/L (22-29); Chloride 109 mmol/L (98-107); Estimated GFR-MDRD Greater than 90; Globulin 3.3 g/dL (2.4-3.5); Glucose 148 mg/dL (70-105); Potassium 4.7 mmol/L (3.5-5.1); Protein, Total 6.4 g/dL (6.0-8.3); Sodium 142 mmol/L (136-145)
[2018-03-10 19:03] VITALS: BP 145/97
--- NOTE | 2018-03-10 19:49 | RAD ---
RADIOGRAPH CHEST 1 VIEW: Date: 03/10/18 Time: 5:43 p.m. HISTORY: 28 year old female in respiratory failure. Organ donor. COMPARISON: 03/10/18, 12:27 p.m. FINDINGS: Endotracheal tube, NG tube, and left subclavian central venous catheter, and bilateral basilar chest tubes, remain. Air space densities in the bilateral lower lung zones are unchanged. Upper lobes are c lear. No pneumothorax identified. No interval change overall. IMPRESSION: 1. No interval change since earlier today. 2. No change in life-support lines. 3. No change in significant bilateral lower lung zone air space densities, left greater than rig ht, consistent with pneumonia and/or aspiration. ELOINA [] POS: [facility]
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
[2018-03-10] MEDS ORDERED: Hydrocortisone Sod Succ/PF 100 mg/2 ml Vial IVP SCH (20:30)
[2018-03-10] MEDS ORDERED: Norepinephrine 8 MG/0.9% NS 250 ML ONE (20:41)
[2018-03-10 21:02] LABS: Bilirubin Negative (Negative); Blood, Urine Moderate (Negative); Clarity CLEAR (Clear); Glucose, Urine (Dipstick) 250 mg/dL (Negative); Leukocyte Negative (Negative); Nitrite Negative (Negative); Protein, Urine (Dipstick) 30 mg/dL (Neg-Trace); Specific Gravity, Urine 1.022 (1.002-1.036); Urobilinogen 0.2 mg/dL (0.2-1.0); pH, Urine 6.5 (5.0-9.0)
[2018-03-10 21:07] LABS: Bacteria/HPF None Seen HPF (None Seen); Hyaline Casts/LPF 0-3 HYALINE CAST LPF (0-3 Hyaline); Pathc Cast-AUWi Flag 0.14 (0-2.49); RBC/HPF 0-3 HPF (0-3); Squamous Epithelial 0-3 HPF (0-3); WBC/HPF 0-3 HPF (0-3)
[2018-03-10] MEDS ORDERED: Levothyroxine 100 MCG SDV IVP SCH (21:15)
[2018-03-10] MEDS ORDERED: Dextrose 50% Abboject 50 ML SYRINGE ONE (21:37)
[2018-03-10] MEDS ORDERED: Insulin Regular 300 UNITS/3 ML VIAL IVP SCH (21:45)
[2018-03-10] MEDS ORDERED: methylPREDNISolone Sod Succ 2 gm/30 ml Vial IVP SCH (21:45)
[2018-03-10] MEDS ORDERED: Levothyroxine Sodium 400 MCG in Sodium Chloride 0.9% 100 ML IVPB SCH (21:45)
[2018-03-10] MEDS ORDERED: Dextrose 50% Abboject 50 ML SYRINGE SLOW IVP SCH (21:45)
[2018-03-10] MEDS: Phytonadione 10 MG/ML AMP SLOW IVP SCH (22:04)
[2018-03-10 22:06] LABS: Actual Bicarbonate (HCO3a) 24.4 mEq/L (22-28); Base Excess (BEa) -3.3 mEq/L (-2.0 to +3.0); CO2 Tension 61.1 mmHg (35.0-45.0); Hematocrit-ABG 22.5 % (36.0-47.0); Hemoglobin (Hb) 7.5 g/dL (12.0-16.0); O2 Tension (PaO2) 250.8 mmHg (80.0-100.0); pH, Arterial 7.22 (7.35-7.45)
[2018-03-10 22:07] LABS: Actual Bicarbonate (HCO3a) 22.7 mEq/L (22-28); CO2 Tension 45.7 mmHg (35.0-45.0); O2 Tension (PaO2) 138.2 mmHg (80.0-100.0); pH, Arterial 7.31 (7.35-7.45)
[2018-03-10 22:07] LABS: ALV-art Gradient 29.325 (0-20); Calcium, Ionized 1.1 mmol/L (1.12-1.30); Puncture Site LINE
[2018-03-10 22:08] LABS: ALV-art Gradient 517.675 (0-20); Base Excess (BEa) -3.3 mEq/L (-2.0 to +3.0); Hematocrit-ABG 21.1 % (36.0-47.0); Hemoglobin (Hb) 7.1 g/dL (12.0-16.0); Puncture Site ALINE
[2018-03-10 22:09] LABS: Actual Bicarbonate (HCO3a) 25.5 mEq/L (22-28); Base Excess (BEa) -3.9 mEq/L (-2.0 to +3.0); CO2 Tension 80.6 mmHg (35.0-45.0); Hemoglobin (Hb) 6.8 g/dL (12.0-16.0); O2 Tension (PaO2) 98.9 mmHg (80.0-100.0); pH, Arterial 7.12 (7.35-7.45)
[2018-03-10 22:10] LABS: Puncture Site ALINE
--- NOTE | 2018-03-10 22:10 | RAD ---
RADIOGRAPH CHEST 1 VIEW: Date: 03/10/18 Time: 8:46 p.m. HISTORY: 28-year-old female intubated, organ donor. Followup infiltrates. COMPARISON: 03/10/18, 5:43 p.m. FINDINGS: Patient is mildly rotated to the left now. The air space densities at the right lower lung zone appea r somewhat worse now, with new silhouetting of the right hemidiaphragm. The air space densities at th e left lower lobe also appear more dense now. It is uncertain how much of this apparent difference is due to positional differences. No change in life support lines. No pneumothorax identified. IMPRESSION: Apparent interval worsening of air space densities/consolidations in the bilateral lower lung zones. ELOINA [] POS: [facility]
--- NOTE | 2018-03-11 00:12 | RAD ---
RADIOGRAPH CHEST 1 VIEW: Date: 03/10/18 Time: 11:46 p.m. HISTORY: 28-year-old female in respiratory failure. Organ donor. COMPARISON: 03/10/18, 8:46 p.m. FINDINGS: No change in life support lines. No improvement in the bilateral basilar consolidations /air space de nsities. IMPRESSION: No major interval change. ELOINA [] POS: [facility]
[2018-03-11 00:40] LABS: INR-International Normal Ratio 1.4; PTT 36.8 SEC (22.9-36.1); Prothrombin Time 17.5 SEC (12.0-14.7)
[2018-03-11 00:53] LABS: ALT (SGPT) 7 U/L (8-55); AST (SGOT) 30 U/L (5-34); Albumin 3.6 g/dL (3.5-5.0); Alkaline Phosphatase 75 U/L (40-150); Anion Gap 14 mmol/L (10-20); BUN (Urea Nitrogen) 15 mg/dL (7.0-18.7); Bilirubin, Total 1.7 mg/dL (0.2-1.2); Calc. Creatinine Clearance 129 mL/min (70-130); Calcium 8.1 mg/dL (7.8-10.44); Carbon Dioxide 20 mmol/L (22-29); Chloride 112 mmol/L (98-107); Estimated GFR-MDRD Greater than 90; Globulin 2.3 g/dL (2.4-3.5); Glucose 171 mg/dL (70-105); Magnesium 2.1 mg/dL (1.6-2.6); Phosphorus 1.5 mg/dL (2.3-4.7); Potassium 3.7 mmol/L (3.5-5.1); Protein, Total 5.9 g/dL (6.0-8.3); Sodium 142 mmol/L (136-145)
[2018-03-11 00:54] LABS: Band 47 % (5-11); Hemoglobin 7.6 g/dL (12.0-16.0); Lymphocytes 7 % (21-51); MDiff Complete? YES; Mean Corpuscular HGB CONC 33.5 g/dL (32.0-36.0); Mean Corpuscular Hemoglobin 31.1 pg (27.0-31.0); Mean Corpuscular Volume 92.8 fL (78.0-98.0); Mean Platelet Volume 6.7 fL (7.4-10.4); Metamyelocyte 1 % (0-0); Monocytes 6 % (0-10); Neutrophil 39 % (42-75); PLT Morphology Comment Appears Adequate; Platelet Count 140 thou/uL (130-400); RBC Distribution Width 13.7 % (11.5-14.5); Red Blood Cell (RBC) Count 2.46 mill/uL (4.20-5.40); White Blood Cell (WBC) Count 16.4 thou/uL (4.8-10.8)
[2018-03-11 01:03] LABS: pH, Arterial 7.42 (7.35-7.45)
[2018-03-11 01:04] LABS: Actual Bicarbonate (HCO3a) 19.8 mEq/L (22-28); Base Excess (BEa) -4.2 mEq/L (-2.0 to +3.0); CO2 Tension 31.6 mmHg (35.0-45.0); Hematocrit-ABG 21.6 % (36.0-47.0); Hemoglobin (Hb) 7.3 g/dL (12.0-16.0); O2 Tension (PaO2) 505.9 mmHg (80.0-100.0); Puncture Site ALINE
[2018-03-11] MEDS ORDERED: Phytonadione 10 MG/ML AMP SLOW IVP SCH (02:00)
[2018-03-11] MEDS: Phytonadione 10 MG/ML AMP SLOW IVP SCH (03:57)
[2018-03-11 08:28] VITALS: TEMP 98
[2018-03-11] MEDS ORDERED: Albuterol Sulfate 2.5 mg/3 ml Neb ONE ×2 (10:54→18:34)
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
== END 2018-03-12 02:06 | disposition expired | DRG 955 ==
LOC: ERS 19:09 → CCU 20:32 → SDC/OP 21:27 → CCU 22:59
PROVIDERS: ADMIT Specialist; ATTEND Specialist
PROC: 00C40ZZ Extirpation of Matter from Intracranial Subdural Space, Open Approach (ICD-10-PCS; principal; 2018-03-05)
PROC: 02HV33Z Insertion of Infusion Device into Superior Vena Cava, Percutaneous Approach (ICD-10-PCS; 2018-03-05)
PROC: 5A1955Z Respiratory Ventilation, Greater than 96 Consecutive Hours (ICD-10-PCS; 2018-03-06)
PROC: 0W9B00Z Drainage of Left Pleural Cavity with Drainage Device, Open Approach (ICD-10-PCS; 2018-03-06)
PROC: 0W9900Z Drainage of Right Pleural Cavity with Drainage Device, Open Approach (ICD-10-PCS; 2018-03-07)
PROC: 0B9F8ZX Drainage of Right Lower Lung Lobe, Via Natural or Artificial Opening Endoscopic, Diagnostic (ICD-10-PCS; 2018-03-10)
PROC: 0WCQ8ZZ Extirpation of Matter from Respiratory Tract, Via Natural or Artificial Opening Endoscopic (ICD-10-PCS; 2018-03-10)
DX: J96.00 Acute respiratory failure, unspecified whether with hypoxia or hypercapnia; G93.5 Compression of brain; J18.9 Pneumonia, unspecified organism; S27.0XXA Traumatic pneumothorax, initial encounter; S22.43XA Multiple fractures of ribs, bilateral, initial encounter for closed fracture; S27.321A Contusion of lung, unilateral, initial encounter; E23.2 Diabetes insipidus; D62 Acute posthemorrhagic anemia; T17.890A Other foreign object in other parts of respiratory tract causing asphyxiation, initial encounter; Z51.5 Encounter for palliative care; R40.3 Persistent vegetative state; E87.6 Hypokalemia; E83.42 Hypomagnesemia; E83.39 Other disorders of phosphorus metabolism; V94.4XXA Injury to barefoot water-skier, initial encounter; W22.09XA Striking against other stationary object, initial encounter; X58.XXXA Exposure to other specified factors, initial encounter
CPT/HCPCS: 12004; 31500; 36415; 36416; 36430; 36556; 51702; 70450; 70498; 71045; 71260; 72125; 74177; 78610; 80048; 80053; 81001; 81003; 81015; 82150; 82248; 82533; 82805; 82977; 83036; 83690; 83735; 83930; 84100; 84703; 85025; 85384; 85610; 85730; 86850; 86900; 86901; 87070; 87077; 87086; 87205; 90471; 90715; 94002; 94003; 94640; 96374; 96375; A4216; A9521; G0390; J0131; J0360; J0696; J1165; J1720; J2001; J2150; J2250; J2270; J2405; J2597; J2704; J2930; J3010; J3430; J3475; J3480; J3490; J7050; J7611; J7620; J7799; P9012; P9016; P9045; P9059; Q2009; S0028

== ENCOUNTER 2018-03-10 21:30 | Inpatient (IN) | payer OTHER ==
[2018-03-10] MEDS: Sodium Chloride 0.45% 1,000 ML IV SCH (22:29)
[2018-03-11] MEDS ORDERED: Norepinephrine 8 MG/0.9% NS 250 ML IVPB SCH (00:15)
[2018-03-11] MEDS ORDERED: Albuterol Sulfate 2.5 mg/3 ml Neb NEB PRN (00:30)
[2018-03-11] MEDS ORDERED: Vasopressin 20 UNIT in Sodium Chloride 0.9% 250 ML 250 ML IV SCH (00:30)
[2018-03-11] MEDS ORDERED: Magnesium 2 GM/NS 0.9% 100 ML 2 GM in Premix Bag 1 BAG IVPB SCH (01:30)
[2018-03-11] MEDS ORDERED: Magnesium Sulfate 2 GM in Sodium Chloride 0.9% 100 ML IVPB SCH (01:30)
[2018-03-11] MEDS ORDERED: Phytonadione 10 MG/ML AMP SLOW IVP SCH (02:00)
[2018-03-11] MEDS ORDERED: CEFAZOLIN 1 GM in Sodium Chloride 0.9% 100 ML IVPB SCH (02:00)
[2018-03-11] MEDS: Vancomycin HCl 1 GM in Premix Bag 1 BAG IVPB SCH ×2 (02:57→15:20)
[2018-03-11] MEDS: Levothyroxine Sodium 400 MCG in Sodium Chloride 0.9% 100 ML IVPB SCH ×3 (05:31→20:19)
[2018-03-11 06:23] LABS: PTT 32.9 SEC (22.9-36.1)
[2018-03-11 06:25] LABS: ALT (SGPT) 8 U/L (8-55); AST (SGOT) 28 U/L (5-34); Albumin 3.5 g/dL (3.5-5.0); Alkaline Phosphatase 72 U/L (40-150); Anion Gap 16 mmol/L (10-20); BUN (Urea Nitrogen) 16 mg/dL (7.0-18.7); Bilirubin, Total 1.4 mg/dL (0.2-1.2); Calc. Creatinine Clearance 0 mL/min (70-130); Calcium 8.2 mg/dL (7.8-10.44); Carbon Dioxide 19 mmol/L (22-29); Chloride 112 mmol/L (98-107); Estimated GFR-MDRD Greater than 90; Globulin 2.4 g/dL (2.4-3.5); Glucose 213 mg/dL (70-105); Magnesium 2.7 mg/dL (1.6-2.6); Phosphorus 2.3 mg/dL (2.3-4.7); Potassium 4.1 mmol/L (3.5-5.1); Protein, Total 5.9 g/dL (6.0-8.3); Sodium 143 mmol/L (136-145)
[2018-03-11 06:28] LABS: INR-International Normal Ratio 1.3
[2018-03-11 06:29] LABS: Actual Bicarbonate (HCO3a) 20.5 mEq/L (22-28); Base Excess (BEa) -2.3 mEq/L (-2.0 to +3.0); CO2 Tension 28.6 mmHg (35.0-45.0); O2 Tension (PaO2) 131.2 mmHg (80.0-100.0); pH, Arterial 7.47 (7.35-7.45)
[2018-03-11 06:30] LABS: Calcium, Ionized 1.1 mmol/L (1.12-1.30); Puncture Site ALINE
[2018-03-11 06:35] LABS: Band 36 % (5-11); Hemoglobin 9.7 g/dL (12.0-16.0); Lymphocytes 6 % (21-51); MDiff Complete? YES; Mean Corpuscular HGB CONC 31.7 g/dL (32.0-36.0); Mean Corpuscular Hemoglobin 27.9 pg (27.0-31.0); Mean Platelet Volume 6.6 fL (7.4-10.4); Monocytes 2 % (0-10); Neutrophil 56 % (42-75); PLT Morphology Comment Appears Adequate; Platelet Count 132 thou/uL (130-400); Red Blood Cell (RBC) Count 3.47 mill/uL (4.20-5.40); White Blood Cell (WBC) Count 11.4 thou/uL (4.8-10.8)
[2018-03-11] MEDS: Albuterol Sulfate 2.5 mg/3 ml Neb NEB SCH ×5 (06:55→18:58)
[2018-03-11 06:59] LABS: CKMB 1.2 ng/mL (0-6.6)
--- NOTE | 2018-03-11 07:41 | RAD ---
SEMIUPRIGHT PORTABLE CHEST 1 VIEW: HISTORY: A 28-year-old female with a history of respiratory insufficiency. FINDINGS: Life support tubes remain in place including bilateral chest tubes. Stable bilateral lower lung zone parenchymal changes. No significant pneumothorax. IMPRESSION: Stable bilateral alveolar confluent parenchymal changes in the lower lobes, evidence for bilateral lo wer lobe pneumonia. No significant new process. Continued short-term followup for complete clearing . POS: [facility]
[2018-03-11] MEDS ORDERED: cefTRIAXone\\ROCEPHIN 2 GM in Sodium Chloride 0.9% 100 ML IVPB SCH (09:00)
[2018-03-11] MEDS: Piperacillin/Tazobactam 3.375 GM in Sodium Chloride 0.9% 100 ML IVPB SCH ×3 (09:16→20:18)
--- NOTE | 2018-03-11 12:17 | CT ---
CT CHEST AND ABDOMEN AND PELVIS WITHOUT IV CONTRAST: Multiple axial tomograms were obtained through the chest, abdomen, and pelvis without IV enhancement. INDICATION: Noncontrast CT chest, abdomen, and pelvis requested for donor purposes. The patient is on life suppo rt system and is awaiting organ harvesting for donor purposes. FINDINGS: CT chest shows diffuse confluent infiltrates in both posterior lung bases with air bronchograms. Severo ateral chest tubes are present. A small right pneumothorax is noted. Mediastinum unremarkable. ET tube and NG tube are in place. Abdomen and pelvis show unremarkable liver, spleen, or pancreas for an unenhanced study. The kidneys show no evidence of hydronephrosis. There is mild edema involving the right kidney with some mild p erinephric haziness on the right. The left kidney appears unremarkable for an unenhanced study. Bowel loops unremarkable. A small amount of free fluid in the pelvis. Pelvic catheter is in place. IMPRESSION: 1. Dense consolidation of both posterior lung bases and small right pneumothorax. 2. Mild right renal edema and mild right perinephric haziness without significant hydronephrosis. 3. A small amount of free fluid in the deep pelvis. POS: [facility]
[2018-03-11] MEDS ORDERED: Albumin 25% 25 GM/100 ML BOT IVPB SCH ×2 (12:30)
[2018-03-11] MEDS ORDERED: Furosemide 20 MG/2 ML VIAL SLOW IVP SCH (12:30)
[2018-03-11] MEDS ORDERED: Naloxone HCl 2 mg/2 ml Syringe IV SCH (12:30)
[2018-03-11 12:34] LABS: Bilirubin Negative (Negative); Blood, Urine Trace (Negative); Clarity CLEAR (Clear); Glucose, Urine (Dipstick) 500 mg/dL (Negative); Leukocyte Negative (Negative); Nitrite Negative (Negative); Protein, Urine (Dipstick) 30 mg/dL (Neg-Trace); Specific Gravity, Urine 1.029 (1.002-1.036); Urobilinogen 0.2 mg/dL (0.2-1.0)
[2018-03-11 12:35] LABS: Mean Corpuscular HGB CONC 33.6 g/dL (32.0-36.0); Mean Corpuscular Hemoglobin 29.6 pg (27.0-31.0); Mean Platelet Volume 6.9 fL (7.4-10.4); Platelet Count 122 thou/uL (130-400); RBC Distribution Width 15.2 % (11.5-14.5); Red Blood Cell (RBC) Count 3.04 mill/uL (4.20-5.40); White Blood Cell (WBC) Count 17.2 thou/uL (4.8-10.8)
[2018-03-11 12:37] LABS: Bacteria/HPF None Seen HPF (None Seen); Hyaline Casts/LPF 0-3 HYALINE CAST LPF (0-3 Hyaline); Pathc Cast-AUWi Flag 0.29 (0-2.49); RBC/HPF 0-3 HPF (0-3); Squamous Epithelial 0-3 HPF (0-3); WBC/HPF 0-3 HPF (0-3)
[2018-03-11 12:46] LABS: INR-International Normal Ratio 1.3
[2018-03-11 12:48] LABS: ALT (SGPT) 7 U/L (8-55); AST (SGOT) 22 U/L (5-34); Albumin 3.2 g/dL (3.5-5.0); Alkaline Phosphatase 66 U/L (40-150); Anion Gap 11 mmol/L (10-20); BUN (Urea Nitrogen) 18 mg/dL (7.0-18.7); Calc. Creatinine Clearance 0 mL/min (70-130); Calcium 8.3 mg/dL (7.8-10.44); Carbon Dioxide 22 mmol/L (22-29); Chloride 114 mmol/L (98-107); Estimated GFR-MDRD Greater than 90; Globulin 2.2 g/dL (2.4-3.5); Glucose 188 mg/dL (70-105); Magnesium 2.7 mg/dL (1.6-2.6); Phosphorus 2.1 mg/dL (2.3-4.7); Potassium 3.4 mmol/L (3.5-5.1); Protein, Total 5.4 g/dL (6.0-8.3); Sodium 144 mmol/L (136-145)
[2018-03-11 12:57] LABS: Renal Epithelial 0-3 HPF (0-3); Transitional Epithelial 0-3 HPF (0-3)
[2018-03-11] MEDS ORDERED: Naloxone HCl 0.4 mg/ml Vial IV SCH (13:00)
[2018-03-11 13:07] LABS: Band 35 % (5-11); Lymphocytes 8 % (21-51); MDiff Complete? YES; Metamyelocyte 2 % (0-0); Monocytes 4 % (0-10); Neutrophil 51 % (42-75); Nucleated RBC 1 % (0); RBC Morphology Normal
[2018-03-11 13:12] LABS: CO2 Tension 23.1 mmHg (35.0-45.0); pH, Arterial 7.53 (7.35-7.45)
[2018-03-11 13:13] LABS: Actual Bicarbonate (HCO3a) 18.8 mEq/L (22-28); Calcium, Ionized 1.1 mmol/L (1.12-1.30); Hemoglobin (Hb) 8.6 g/dL (12.0-16.0); O2 Tension (PaO2) 360.6 mmHg (80.0-100.0); Puncture Site ALINE
[2018-03-11 13:14] LABS: ALV-art Gradient 318.525 (0-20)
[2018-03-11 14:35] VITALS: BP 115/58
[2018-03-11 16:14] LABS: CO2 Tension 30.2 mmHg (35.0-45.0); O2 Tension (PaO2) 472.8 mmHg (80.0-100.0); pH, Arterial 7.49 (7.35-7.45)
[2018-03-11 16:15] LABS: Actual Bicarbonate (HCO3a) 22.2 mEq/L (22-28); Base Excess (BEa) -0.8 mEq/L (-2.0 to +3.0); Calcium, Ionized 1.1 mmol/L (1.12-1.30); Hemoglobin (Hb) 8.6 g/dL (12.0-16.0); Puncture Site ALINE
[2018-03-11 18:23] VITALS: TEMP 99
[2018-03-11 18:25] LABS: INR-International Normal Ratio 1.3; PTT 31.6 SEC (22.9-36.1)
[2018-03-11 18:36] LABS: Hemoglobin 7.9 g/dL (12.0-16.0); Mean Corpuscular HGB CONC 33.5 g/dL (32.0-36.0); Mean Corpuscular Hemoglobin 29.6 pg (27.0-31.0); Mean Corpuscular Volume 88.4 fL (78.0-98.0); Mean Platelet Volume 7.3 fL (7.4-10.4); Platelet Count 112 thou/uL (130-400); Red Blood Cell (RBC) Count 2.68 mill/uL (4.20-5.40); White Blood Cell (WBC) Count 20.1 thou/uL (4.8-10.8)
[2018-03-11 18:43] LABS: ALT (SGPT) Less than 7 U/L (8-55); AST (SGOT) 19 U/L (5-34); Albumin 3.5 g/dL (3.5-5.0); Alkaline Phosphatase 69 U/L (40-150); Anion Gap 11 mmol/L (10-20); BUN (Urea Nitrogen) 18 mg/dL (7.0-18.7); Calc. Creatinine Clearance 0 mL/min (70-130); Calcium 8.1 mg/dL (7.8-10.44); Carbon Dioxide 22 mmol/L (22-29); Chloride 111 mmol/L (98-107); Estimated GFR-MDRD Greater than 90; Globulin 1.9 g/dL (2.4-3.5); Glucose 177 mg/dL (70-105); Magnesium 2.7 mg/dL (1.6-2.6); Phosphorus 1.4 mg/dL (2.3-4.7); Potassium 3.2 mmol/L (3.5-5.1); Protein, Total 5.4 g/dL (6.0-8.3); Sodium 141 mmol/L (136-145)
[2018-03-11 18:58] LABS: Anisocytosis SLIGHT = 6-15 cells (100X) (0-5/hpf); Band 24 % (5-11); Dohle Bodies SLIGHT; Lymphocytes 15 % (21-51); MDiff Complete? YES; Metamyelocyte 2 % (0-0); Monocytes 3 % (0-10); Myelocyte 1 % (0-0); Neutrophil 55 % (42-75); PLT Morphology Comment Appears Decreased; Polychromasia SLIGHT = 2-3 cells (100X) (0-2/hpf); Toxic Granulation SLIGHT
[2018-03-11] MEDS: Sodium Chloride 0.45% 1,000 ML IV SCH (20:22)
== END 2018-03-12 02:07 | disposition expired | DRG 951 ==
LOC: SDC/OP 21:30 → CCU 03-11 06:41
PROVIDERS: ADMIT Specialist; ATTEND Specialist
DX: Z52.9 Donor of unspecified organ or tissue (principal)
CPT/HCPCS: 36416; 36430; 71045; 71250; 74176; 81001; 82150; 82248; 82553; 82805; 83690; 83735; 84100; 86850; 86900; 86901; 93005; 93010; 93306; J0690; J0696; J1940; J2310; J2370; J2543; J3370; J3475; J7050; J7611; P9016; P9047